=== PATIENT | female | born 1950 | race Caucasian/White ===

== ENCOUNTER 2019-03-14 05:33 | Emergency (ER) | payer OTHER, MEDICAID ==
[~2019-03-14] VITALS: Ht 160 cm; Wt 61.2 kg
[2019-03-14 05:41] VITALS: Ht 160 cm; Wt 61.2 kg
[2019-03-14 07:05] LABS: BASOPHIL % 0.1 % (0-2); PLATELET COUNT 217 x10^3mcL (130-400); RED CELL DISTRIBUTION WIDTH 12.7 % (11.5-14.5)
[2019-03-14 07:17] LABS: CALCIUM 8.8 mg/dL (8.5-10.1); CHLORIDE SERUM 106 mmol/L (98-107); CREATININE SERUM 0.9 mg/dL (0.6-1.0); GFR1 > 60 mL/min; GLUCOSE SERUM 136 mg/dL (74-106); POTASSIUM SERUM 3.7 mmol/L (3.5-5.1); SODIUM SERUM 142 mmol/L (136-145)
[2019-03-14 07:19] LABS: AMPHETAMINE QUAL UR NONE DETECTED (See below)
[2019-03-14 07:27] LABS: ALBUMIN 3.5 g/dL (3.4-5.0); ALKALINE PHOSPHATASE 125 U/L (46-116); ALT/SGPT 22 U/L (14-59); AST/SGOT 14 U/L (15-37); BILIRUBIN TOTAL 1.02 mg/dL (0.20-1.00); T4(THYROXINE) 6.5 ug/dL (4.7-13.3)
--- NOTE | 2019-03-14 08:56 | NUR ---
Packet faxed to [facility] for review.
[2019-03-14 12:33] VITALS: BP 129/80
== END 2019-03-14 12:34 ==
LOC: ED 05:33
PROVIDERS: Emergency Medicine
DX: F31.9 Bipolar disorder, unspecified (principal); Z88.0 Allergy status to penicillin
CPT/HCPCS: 36415; G0480